=== PATIENT | male | born 1960 ===

== ENCOUNTER 2023-05-13 10:45 | Day surgery (SDC) | payer BC ==
[2023-05-13] MEDS ORDERED: Ringers Lactate 1,000 ML IV ONE ×2 (11:15→13:59)
[2023-05-13] MEDS ORDERED: CEFAZOLIN SODIUM 2 GM/VIAL ONE (11:15)
[2023-05-13] MEDS: BUPIVACAINE 0.25% PF 10 ML VIAL ONE ×2 (12:33→13:08)
[2023-05-13] MEDS ORDERED: propofoL 200 MG/20 ML VIAL IV ONE (12:42)
[2023-05-13] MEDS ORDERED: FENTANYL CITR 100 MCG/2 ML ONE (12:43)
[2023-05-13] MEDS ORDERED: ROCURONIUM 50 MG/5 ML VIAL IV ONE (12:43)
[2023-05-13] MEDS ORDERED: LIDOCAINE 2% MPF 5 ML VIAL ONE ×2 (12:43→14:02)
[2023-05-13] MEDS ORDERED: MIDAZOLAM HCL 2 MG/2 ML INJ ONE (12:43)
[2023-05-13] MEDS ORDERED: KETAMINE HCL IN 0.9 % NACL 50 MG/5 ML SYRINGE IV ONE (12:57)
[2023-05-13] MEDS ORDERED: ONDANSETRON 4 MG/2 ML VIAL ONE (13:13)
[2023-05-13] MEDS ORDERED: dexAMETHasone 4 MG/ML VIAL ONE (13:13)
[2023-05-13] MEDS ORDERED: GLYCOPYRROLATE 0.2 MG/ML SYR ONE ×2 (13:13)
[2023-05-13] MEDS ORDERED: NEOSTIGMINE 1 MG/ML -10 ML VIAL ONE (13:13)
[2023-05-13] MEDS ORDERED: EPHEDRINE SULF 50 MG/ML VIAL ONE (13:18)
--- NOTE | 2023-05-13 13:51 | P.OP ---
[employer]: SUJEY MASON Preoperative diagnosis: Umbilical Hernia - Incarcerated Adipose Postoperative diagnosis: Umbilical Hernia - Incarcerated Adipose Primary procedure: Laparoscopic Umbilical Hernia Repair with mesh Anesthesia: GETA + Local Estimated blood loss: <5cc Specimen: Hernia Contents - Adipose Findings: Incarcerated adipose tissue, pre-peritoneal adipose Complications: None Implants: Bard Ventralite ST mesh 11.4cm round, Sorbafix Tacks x 45 Transferred to: Recovery Room Condition: Good
[2023-05-13] MEDS: HYDROMORPHONE HCL 1 MG/ML INJ ONE ×2 (14:13→14:19)
[2023-05-13] MEDS: FENTANYL CITR 100 MCG/2 ML ONE ×2 (14:29→14:41)
[2023-05-13] MEDS ORDERED: KETOROLAC 30 MG/ML INJ ONE (14:38)
[2023-05-13] MEDS ORDERED: HYDROCODONE/APAP 10/325 TAB ONE (15:29)
[2023-05-13 15:31] VITALS: BP 143/78; TEMP 97
[2023-05-13 17:45] VITALS: O2SAT 98
--- NOTE | 2023-05-13 19:03 | OP ---
Date of Procedure: 05/13/2023 Surgeon: Erickson Rajan MD, Preoperative Diagnosis: Umbilical hernia with incarcerated adipose tissue. Postoperative Diagnosis: Umbilical hernia with incarcerated adipose tissue. Procedure: Laparoscopic umbilical hernia repair with mesh. Anesthesia: General endotracheal plus local with 0.25% Marcaine. Estimated Blood Loss: Less than 5 cc. Specimens: Hernia contents/adipose tissue. Findings: Incarcerated adipose tissue, preperitoneal adipose tissue. Complications: None. Implants: Bard Ventralight ST mesh with Echo Positioning System, 11.4 cm round mesh utilized, SorbaF ix absorbable fixation tacks x45 utilized. Disposition: The patient was transferred to the recovery room in good condition. Procedure In Detail: After informed consent was obtained, the patient was brought to the operating r oom, prepped and draped in the usual sterile fashion after adequate anesthesia was achieved. An area of the left upper quadrant was anesthetized with 0.25% Marcaine, sharply incised, a 5 mm trocar was placed under direct visualization without evidence of complication. Insufflation was obtained to 15 mmHg at this time. There was no injury to vital structure upon entry into the abdomen. Additional t rocar was placed in the left lower quadrant. This was similarly anesthetized and sharply incised. A 12 mm trocar was placed under direct visualization without evidence of complication. I then used th e LigaSure device to take down preperitoneal fat and some adipose tissue, which was entrapped within the hernia contents at the umbilical position. After this was encircled, I ligated the adipose tissu e as it was devascularized and pulled out through the trocar site and sent off for pathologic examina tion. I then inspected the hernia defect and found to be approximately 1 cm in size. At this point, I used the 0 V-Loc on Endo Stitch to close the defect imbricating the hernia sac at this point in a running fashion with good approximation of tissues. At this point, I deployed an 11.4 cm Bard Ventra light mesh with Echo Positioning System into the abdomen after using the deployment system and center ed the mesh after stab incision was made through the supraumbilical position after appropriately anes thetizing skin. The balloon was deployed at this point and I secured the mesh to the anterior abdomi nal wall using SorbaFix absorbable fixation tacks. The balloon deployment system was then removed, f ound to be intact on the back table. I then used a total of 45 tacks to do a double-crown type orien tation to the anterior abdominal wall with good approximation of tissues of the mesh to the abdominal wall. At this point, the abdomen was inspected. No additional hemostatic maneuvers were required a t this point. I then removed the 12 mm trocar site and closed it using a Dillan-Guillermo suture pass er with 0 Vicryl in an interrupted fashion with good approximation of tissues. I then desufflated th e abdomen under direct visualization without evidence of complication. Remaining trocars were remove d. All skin incisions were copiously irrigated and closed with a 4-0 Monocryl in a running fashion. Dermabond placed over top. The patient tolerated the procedure well without evidence of complicatio n and transferred to PACU in good condition. All counts were correct at the end of the case. LUIS E/ESTRADA Voice ID: [id number] Report ID: [id number]
--- NOTE | 2023-05-15 15:33 | EKG ---
Test Date: 2023-05-13 Test Time: 10:59:23 Filament Welder: ONEIDA MEASUREMENT RESULTS: Intervals: Rate: 55 [place]: 150 QRSD: 98 QT: 430 QTc: 411 [place]: P: 46 [place]: 150 QRS: 19 T: 39 INTERPRETIVE STATEMENTS: Sinus bradycardia Otherwise normal ECG No previous ECG available for comparison Electronically Signed On 05-15-23 15:30:44 CDT by Conor Friedman
== END 2023-05-13 16:10 | disposition home or self-care (01) ==
LOC: OR 10:45
PROVIDERS: ATTEND Surgery
PROC: 0WUF4JZ Supplement Abdominal Wall with Synthetic Substitute, Percutaneous Endoscopic Approach (ICD-10-PCS; principal; 2023-05-13 12:15)
DX: K42.0 Umbilical hernia with obstruction, without gangrene (principal)
CPT/HCPCS: 93005; 80048; 36415; 88302; 49594; J2704; J1100; J2710; J2001 ×2; J2250; J3010 ×2; J1170; J2405; J7120 ×2; C1781